=== PATIENT | female | born 1995 | race Two or more races ===

== ENCOUNTER 2017-02-06 21:17 | Emergency (ER) | payer OTHER ==
[2017-02-06 21:24] VITALS: RESP 18; TEMP 97.5
--- NOTE | 2017-02-06 22:19 | EDPHY ---
H & P Stated Complaint: l eye pain drainage from l eye Time Seen by Provider: 02/06/17 21:38 HPI/ROS: Chief complaint: Left eye discomfort History of present illness: 21-year-old female presents to the emergency department for left eye discomfort. Patient reports the onset of symptoms over the last day. She denies precipitating factors. She denies alleviating factors. She does state there has been a fair amount of discharge of pustular material and there is matting of her eyelids. She denies fevers, denies other cold symptoms, denies trauma, her right eye is not affected. She has good vision when she clears the discharge from the eye. She does not wear contacts or glasses. She has never had eye surgery. - Personal History LMP (Females 10-55): 1-7 Days Ago Current Tetanus/Diphtheria Vaccine: Yes Current Tetanus Diphtheria and Acellular Pertussis (TDAP): Yes - Medical/Surgical History Hx Asthma: No Hx Chronic Respiratory Disease: No Hx Diabetes: No Hx Cardiac Disease: No Hx Renal Disease: No Hx Cirrhosis: No Hx Alcoholism: No Hx HIV/AIDS: No Hx Splenectomy or Spleen Trauma: No Other PMH: Cholecystectomy - Social History Smoking Status: Never smoked - Physical Exam Exam: General Appearance: Alert and no distress. Eyes: Periorbital tissue is unremarkable. There is significant pustular discharge from the left eye with matting of the eyelashes. Mild inflammation along the margins of the eyelids. Mild injection of the eye. No subconjunctival hemorrhage. No hyphema. No hypopyon. EOM intact. Pupils equal and round no injection. Red reflex present. Right eye is unremarkable. Respiratory: Chest is nontender, lungs are clear to auscultation. Cardiac: regular rate and rhythm. Musculoskeletal: Neck is supple and nontender. Extremities have full range of motion and are nontender. Skin: Periorbital tissue is unremarkable. Constitutional: Initial Vital Signs Temperature (C) 36.4 C 02/06/17 21:20 Heart Rate 72 02/06/17 21:20 Respiratory Rate 18 02/06/17 21:20 O2 Sat (%) 99 02/06/17 21:20 O2 Delivery Mode Room Air Allergies/Adverse Reactions: No Known Allergies Allergy (Unverified 02/03/12 04:52) Home Medications: Medication Instructions Recorded NK [No Known Home Meds] 02/26/14 Medical Decision Making ED Course/Re-evaluation: Patient is seen under the supervision of my secondary supervising physician Dr. Suhail Guadalupe. Patient presents to the emergency department for left eye discomfort with discharge from the eye. On presentation she is nontoxic. Physical exam is consistent with an eye infection, conjunctivitis or blepharitis. Patient will be started on eye antibiotics. Home care is discussed including warm compresses. She has had previous eye infections in this eye that have responded well to the eye antibiotics. She is asked to follow up with an director of revenue given recurrent eye infections. Referral information is provided. Return precautions are given. Patient voiced understanding and agreement with plan. - Data Points Medications Given: Discontinued Medications Ciprofloxacin (Ciloxan 0.3% Opht Drops Prepack) 1 btl TAKEHOME EDNOW ONE Stop: 02/06/17 22:28 Last Admin: 02/06/17 22:27 Dose: 1 btl Departure - Departure Disposition: Home, Routine, Self-Care Clinical Impression: Conjunctivitis Condition: Good Instructions: Conjunctivitis (ED) Additional Instructions: Follow-up with an eye doctor for recheck Use the eye antibiotic as directed, place 1 drop into the affected eye every 2 hours while awake for the first 2 days and then every 4 hours while awake for the next 5 days Apply warm compresses to the affected region as discussed If symptoms worsen or new symptoms develop return to the emergency room for recheck Referrals: NONE *PRIMARY CARE P,. [Primary Care Provider] - As per Instructions Hilda Barrientos MD [Non Staff Provider ()] - As per Instructions Stand Alone Forms: Work Excuse
[2017-02-06] MEDS ORDERED: CIPROFLOXACIN 0.3% DROPS PREPACK OPHT.BTL TAKEHOME ONE (22:27)
[2017-02-06 22:41] VITALS: BP 144/68; PULSE 71; O2SAT 94
== END 2017-02-06 22:41 | disposition home or self-care (01) ==
DX: H10.9 Unspecified conjunctivitis (principal)

== ENCOUNTER 2017-06-26 11:46 | Emergency (ER) | payer OTHER ==
[2017-06-26 11:51] VITALS: BP 161/98; PULSE 71; RESP 18; TEMP 97.9; O2SAT 99
--- NOTE | 2017-06-26 14:17 | EDPHY ---
H & P Stated Complaint: Dry,nonprod cough x 2 days;also has ear ache Source: Patient Exam Limitations: No limitations - Personal History LMP (Females 10-55): Now Current Tetanus Diphtheria and Acellular Pertussis (TDAP): Yes - Medical/Surgical History Hx Asthma: No Hx Chronic Respiratory Disease: No Hx Diabetes: No Hx Cardiac Disease: No Hx Renal Disease: No Hx Cirrhosis: No Hx Alcoholism: No Hx HIV/AIDS: No Hx Splenectomy or Spleen Trauma: No Other PMH: Cholecystectomy - Social History Smoking Status: Never smoked HPI/ROS: CHIEF COMPLAINT: Multiple complaints HISTORY OF PRESENT ILLNESS: Patient complains of cough, runny nose, sore throat, left ear pain and chest pressure and pain. Everything but the chest pressure pain started 3-4 days ago. Gradual onset. Constant duration. Worse at night when she lays down. Cough is nonproductive. She does have a sore throat that is moderate to severe. Left ear pain is moderate to severe. The chest pressure and pain started last night. It is worse when coughing and when inspiration. It is not worse with exertion. There is no radiating pain. No sweating. No nausea or vomiting. No shortness of breath. No abdominal pain. No recent travel or surgery. No previous incidence of the VTE or risk factors for VTE. She does work at a preschool. Minimal improvement with [id number] Tylenol cough medicines. No other associated complaints or modifying factors. Last LMP: Current REVIEW OF SYSTEMS: Ten systems reviewed and are negative unless otherwise noted in the HPI PAST MEDICAL HISTORY: None PAST SURGICAL HISTORY: None SOCIAL HISTORY: Nonsmoker. Denies alcohol use. Lives in [facility]. Works as a teacher at [employer] FAMILY HISTORY: Noncontributory EXAMINATION General Appearance: Alert, no distress Head: normocephalic, atraumatic Eyes: Pupils equal and round, no conjunctival pallor or injection ENT, Mouth: Mucous membranes moist. Uvula midline mild posterior erythema without edema or exudate. Right ear is clear. Left EAC is clear. Left TM is bulging with serous otitis media. No acute otitis media. No perforation. No peritonsillar or tonsillar abscess Neck: Normal inspection, supple, non-tender. Painless range of motion all planes. No meningismus or rigidity Respiratory: No wheezing or crackles. No diminishment or consolidation. Mild rhonchi. No retractions or distress Cardiovascular: Regular rate and rhythm. No murmur Gastrointestinal: Abdomen is soft and nontender Back: non-tender, no bony abnormalities Neurological: A&O, nonfocal, normal gait Skin: Warm and dry, no rash. No petechiae or purpura Extremities: Nontender, no pedal edema Psychiatric: Mood and affect normal DIFFERENTIAL DIAGNOSES: Including but not limited to bronchitis, pneumonia, influenza, upper respiratory infection, lower respiratory infection, pharyngitis, otitis media, serous otitis media MDM: 2:15 p.m. Cough, runny nose,pharyngitis, left ear pain with serous otitis media without otitis media. Suspect viral etiology, but I have ordered chest x-ray to rule out pneumonia. Vital signs stable. Chest pain is completely reproducible with cough. 3:15 p.m. Chest x-ray does not reveal any evidence of pneumonia. Vital signs stable. Suspect this is viral etiology, pharyngitis, bronchitis and upper respiratory infection. Treat symptomatically with close follow up primary care physician and ED precautions for exertional chest pain, shortness of breath, fever, diaphoresis Patient is comfortable this plan and discharged home stable conditions. (Jurgen Davidson) Constitutional: Initial Vital Signs Temperature (C) 36.6 C 06/26/17 11:48 Heart Rate 71 06/26/17 11:48 Respiratory Rate 18 06/26/17 11:48 Blood Pressure 161/98 H 06/26/17 11:48 O2 Sat (%) 99 06/26/17 11:48 O2 Delivery Mode Room Air Allergies/Adverse Reactions: No Known Allergies Allergy (Verified 06/26/17 11:48) Home Medications: Medication Instructions Recorded Acetaminophen/Codeine 300/30Mg 1 each PO Q6 PRN #15 tab 06/26/17 [Tylenol #3 (*)] Dexamethasone [Decadron 4 MG (*)] 8 mg PO DAILY #2 tab 06/26/17 predniSONE [Deltasone] 60 mg PO DAILY #9 tablet 06/26/17 Medical Decision Making ED Course/Re-evaluation: The patient was evaluated and managed by the physician orthodontist assistant. I have reviewed this chart and I agree with the findings and plan of care as documented , as indicated by my signature. I am the secondary supervising physician. ( Kortney Ureña) Departure - Departure Disposition: Home, Routine, Self-Care Clinical Impression: Acute pharyngitis, Acute bronchitis, Acute serous otitis media Condition: Good Instructions: Pharyngitis (ED), Acute Bronchitis (ED), Serous Otitis Media (ED) Additional Instructions: 1. Symptomatic medications as discussed 2. ED precautions as discussed 3. follow up with primary care physician Referrals: NONE *PRIMARY CARE P,. [Primary Care Provider] - As per Instructions Navarro Mccormack MD [Medical Doctor] - As per Instructions Physician,Emergency DeptMD [Medical Doctor] - As per Instructions Stand Alone Forms: Work Excuse Prescriptions: Acetaminophen/Codeine 300/30Mg [Tylenol #3 (*)] 1 each PO Q6 PRN #15 tab PRN Reason: Pain, Mild Dexamethasone [Decadron 4 MG (*)] 8 mg PO DAILY #2 tab predniSONE [Deltasone] 60 mg PO DAILY #9 tablet
== END 2017-06-26 16:10 | disposition home or self-care (01) ==
DX: J02.9 Acute pharyngitis, unspecified (principal); J20.9 Acute bronchitis, unspecified; H65.02 Acute serous otitis media, left ear

== ENCOUNTER 2018-01-16 12:40 | Emergency (ER) | payer OTHER ==
[2018-01-16] MEDS ORDERED: MAG HYDROX/AL HYDROX/SIMETH 30 ML UDCUP PO ONE (13:07)
[2018-01-16] MEDS ORDERED: HYOSCYAMINE SULFATE 0.125 MG TAB PO ONE (13:07)
[2018-01-16] MEDS ORDERED: HYDROmorphONE/DILAUDID 2 MG/ML INJ IVP ONE (13:07)
[2018-01-16] MEDS ORDERED: NS 1,000 ML IV ONE (13:07)
[2018-01-16] MEDS ORDERED: LIDOCAINE 2% VISCOUS 15 ML UDCUP PO ONE (13:07)
--- NOTE | 2018-01-16 13:10 | EDPHY ---
H & P Stated Complaint: abd pain and nausea Time Seen by Provider: 01/16/18 13:01 HPI/ROS: CHIEF COMPLAINT: Epigastric pain HISTORY OF PRESENT ILLNESS: The patient is a obese 22-year-old female with a history of cholecystectomy 2 years ago who comes to the emergency department complaining of epigastric pain each evening for the last 5 days. She states that last night it hurt all night. She tried taking Tylenol and Pepto-Bismol without relief. She describes it as a heaviness feeling. She denies any history of cardiac disease. No chest pain or shortness of breath. No lower abdominal pain. No vaginal bleeding or discharge. No urinary symptoms. No vomiting or diarrhea but does have slight nausea. REVIEW OF SYSTEMS: Constitutional: denies: chills, fever, recent illness, recent injury EENTM: denies: blurred vision, double vision, nose congestion Respiratory: denies: cough, shortness of breath Cardiac: denies: chest pain, irregular heart rate, lightheadedness, palpitations Gastrointestinal/Abdominal: See HPI Genitourinary: denies: dysuria, frequency, hematuria, pain Musculoskeletal: denies: joint pain, muscle pain Skin: denies: lesions, rash, jaundice, bruising Neurological: denies: headache, numbness, paresthesia, tingling, dizziness, weakness Hematologic/Lymphatic: denies: blood clots, easy bleeding, easy bruising Immunologic/allergic: denies: HIV/AIDS, transplant EXAM: GENERAL: Well-appearing, obese and in no acute distress. HEAD: Atraumatic, normocephalic. EYES: Pupils equal round and reactive to light, extraocular movements intact, sclera anicteric, conjunctiva are normal. ENT: TMs normal, nares patent, oropharynx clear without exudates. Moist mucous membranes. NECK: Normal range of motion, supple without lymphadenopathy or JVD. LUNGS: Breath sounds clear to auscultation bilaterally and equal. No wheezes rales or rhonchi. HEART: Regular rate and rhythm without murmurs, rubs or gallops. ABDOMEN: Obese, mild epigastric tenderness, negative Matos's BACK: No CVA tenderness, no spinal tenderness, step-offs or deformities EXTREMITIES: Normal range of motion, no pitting or edema. No clubbing or cyanosis. NEUROLOGICAL: Cranial nerves II through XII grossly intact. Normal speech, normal gait. 5/5 strength, normal movement in all extremities, normal sensation PSYCH: Normal mood, normal affect. SKIN: Warm, dry, normal turgor, no visible rashes or lesions. Source: Patient Exam Limitations: No limitations - Personal History LMP (Females 10-55): 8-14 Days Ago Current Tetanus/Diphtheria Vaccine: Yes Current Tetanus Diphtheria and Acellular Pertussis (TDAP): Yes - Medical/Surgical History Hx Asthma: No Hx Chronic Respiratory Disease: No Hx Diabetes: No Hx Cardiac Disease: No Hx Renal Disease: No Hx Cirrhosis: No Hx Alcoholism: No Hx HIV/AIDS: No Hx Splenectomy or Spleen Trauma: No Other PMH: Cholecystectomy - Social History Smoking Status: Never smoked Constitutional: Initial Vital Signs Temperature (C) 36.4 C 01/16/18 12:49 Heart Rate 88 01/16/18 12:49 Respiratory Rate 16 01/16/18 12:49 Blood Pressure 105/75 01/16/18 12:49 O2 Sat (%) 96 01/16/18 12:49 O2 Delivery Mode Room Air Allergies/Adverse Reactions: No Known Allergies Allergy (Verified 06/26/17 11:48) Home Medications: Medication Instructions Recorded Famotidine [Pepcid] 40 mg PO HS #30 tablet 01/16/18 Promethazine HCl [Phenergan 25mg 25 mg PO Q6-8PRN PRN #10 tab 01/16/18 (RX)] Medical Decision Making - Diagnostics EKG Interpretation: An EKG obtained and was read and documented in trace view. Please see trace view for full reading and report. Sinus rhythm, no acute ischemic changes Imaging Results: Imaging Impressions Abdomen CT 01/16/18 13:07 Impression: 1. Trace nonspecific free fluid in the cul-de-sac may be due to ruptured ovarian cyst or follicle. 2. Minimal dilatation of the common bile duct may be patient's postcholecystectomy state. No evidence of choledocholithiasis or acute pancreatitis. 3. No pneumoperitoneum or evidence of perforated gastric ulcer. 4. Normal appendix. Findings discussed with Emergency Department physician, Mariusz Nash on 2017, 15:00. Imaging: Discussed imaging studies w/ bullet slugs inspector Radiologist ED Course/Re-evaluation: 3:15 p.m. the patient's abdominal exam is nontender. She states that she was feeling better after the medication but that she vomited. It is greenish in color. No blood. I will treat her with Phenergan. Discussed her lab and CT results which are overall reassuring. At this point I will treat her symptomatically. 5:30 p.m. the patient is tolerating P.O.. Abdominal exam is benign. She is eager to go home. I will prescribe her Phenergan. She is happy with this plan. We discussed indications for returning. I recommended she get a repeat exam in 24 hr. Differential Diagnosis: Partial list of the Differential diagnosis considered include but were not limited to; pancreatitis, biliary disease, retained stone, peptic ulcer disease and although unlikely based on the history and physical exam, I also considered obstruction, ischemia, appendicitis, volvulus, acute coronary disease. I discussed these differential diagnoses and the plan with the patient as well as the usual and expected course. The patient understands that the diagnosis is provisional and that in medicine we are not always correct and that further workup is often warranted. Usual and customary warnings were given. All of the patient's questions were answered. The patient was instructed to return to the emergency department should the symptoms at all worsen or return, otherwise to followup with the physician as we discussed. - Data Points Laboratory Results: Laboratory Results 01/16/18 13:24 01/16/18 13:24 01/16/18 01/16/18 01/16/18 13:24 13:24 13:24 WBC 11.42 10^3/uL H 10^3/uL (3.80-9.50) RBC 5.31 10^6/uL 10^6/uL (4.18-5.33) Hgb 15.3 g/dL g/dL (12.6-16.3) Hct 45.4 % % (38.0-47.0) MCV 85.5 fL fL (81.5-99.8) MCH 28.8 pg pg (27.9-34.1) MCHC 33.7 g/dL g/dL (32.4-36.7) RDW 12.9 % % (11.5-15.2) Plt Count 267 10^3/uL 10^3/uL (150-400) MPV 9.6 fL fL (8.7-11.7) Neut % (Auto) 79.0 % H % (39.3-74.2) Lymph % (Auto) 14.3 % L % (15.0-45.0) Kinney % (Auto) 5.7 % % (4.5-13.0) Eos % (Auto) 0.4 % L % (0.6-7.6) Baso % (Auto) 0.2 % L % (0.3-1.7) Nucleat RBC Rel Count 0.0 % % (0.0-0.2) Absolute Neuts (auto) 9.03 10^3/uL H 10^3/uL (1.70-6.50) Absolute Lymphs (auto) 1.63 10^3/uL 10^3/uL (1.00-3.00) Absolute Monos (auto) 0.65 10^3/uL 10^3/uL (0.30-0.80) Absolute Eos (auto) 0.04 10^3/uL 10^3/uL (0.03-0.40) Absolute Basos (auto) 0.02 10^3/uL 10^3/uL (0.02-0.10) Absolute Nucleated RBC 0.00 10^3/uL 10^3/uL (0-0.01) Immature Gran % 0.4 % % (0.0-1.1) Immature Gran # 0.05 10^3/uL 10^3/uL (0.00-0.10) Sodium 140 mEq/L mEq/L (135-145) Potassium 3.9 mEq/L mEq/L (3.5-5.2) Chloride 105 mEq/L mEq/L (97-110) Carbon Dioxide 21 mEq/l L mEq/l (22-31) Anion Gap 14 mEq/L mEq/L (8-16) BUN 9 mg/dL mg/dL (7-23) Creatinine 0.6 mg/dL mg/dL (0.6-1.0) Estimated GFR > 60 Glucose 78 mg/dL mg/dL (70-100) Calcium 8.8 mg/dL mg/dL (8.5-10.4) Total Bilirubin 1.2 mg/dL mg/dL (0.1-1.4) Conjugated Bilirubin 0.5 mg/dL mg/dL (0.0-0.5) Unconjugated Bilirubin 0.7 mg/dL mg/dL (0.0-1.1) AST 22 IU/L IU/L (14-46) ALT 38 IU/L IU/L (9-52) Alkaline Phosphatase 133 IU/L H IU/L (38-126) Total Protein 7.7 g/dL g/dL (6.3-8.2) Albumin 4.1 g/dL g/dL (3.5-5.0) Lipase 63 IU/L IU/L (23-300) Beta HCG, Qual NEGATIVE Medications Given: Discontinued Medications Al Hydroxide/Mg Hydroxide (Maalox Susp) 30 ml PO ONCE ONE Stop: 01/16/18 13:08 Last Admin: 01/16/18 13:18 Dose: 30 ml Hydromorphone HCl (Dilaudid) 1 mg IVP EDNOW ONE Stop: 01/16/18 13:08 Last Admin: 01/16/18 13:18 Dose: 1 mg Hyoscyamine Sulfate (Levsin, Hyomax-Sl) 0.25 mg PO ONCE ONE Stop: 01/16/18 13:08 Last Admin: 01/16/18 13:18 Dose: 0.25 mg Sodium Chloride (Ns) 1,000 mls @ 0 mls/hr IV EDNOW ONE; Wide Open PRN Reason: Protocol Stop: 01/16/18 13:08 Last Admin: 01/16/18 13:18 Dose: 1,000 mls Lidocaine (Lidocaine 2% Viscous) 15 ml PO ONCE ONE Stop: 01/16/18 13:08 Last Admin: 01/16/18 13:18 Dose: 15 ml Promethazine HCl (Phenergan) 12.5 mg IVP EDNOW ONE Stop: 01/16/18 15:16 Last Admin: 01/16/18 15:31 Dose: 12.5 mg Departure - Departure Disposition: Home, Routine, Self-Care Clinical Impression: Abdominal pain Qualifiers: Abdominal location: epigastric Qualified Code(s): R10.13 - Epigastric pain Condition: Fair Instructions: Famotidine (By mouth), Promethazine (By mouth), Acute Abdominal Pain (ED) Referrals: NONE *PRIMARY CARE P,. [Primary Care Provider] - As per Instructions [facility],. [Clinic] - As per Instructions Faith Antunez MD [Medical Doctor] - As per Instructions Prescriptions: Famotidine [Pepcid] 40 mg PO HS #30 tablet Promethazine HCl [Phenergan 25mg (RX)] 25 mg PO Q6-8PRN PRN #10 tab PRN Reason: Nausea/Vomiting, Use 2nd
--- NOTE | 2018-01-16 13:31 | CPEKG ---
Heart Rate: 69 RR Interval: 870 P-R Interval: 160 QRSD Interval: 98 QT Interval: 392 QTC Interval: 420 P Dilley: 25 QRS Dilley: -9 T Wave Dilley: 21 EKG Severity - NORMAL ECG - EKG Impression: SINUS RHYTHM Electronically Signed By: Mariusz Nash 16-Jan-2018 13:33:11
[2018-01-16 13:34] LABS: PLATELET COUNT 267 10^3/uL (150-400)
[2018-01-16] MEDS ORDERED: IOPAMIDOL (ISOVUE-300) 100 ML BTL ONE (14:31)
[2018-01-16] MEDS ORDERED: PROMETHAZINE HCL 25 MG/ML INJ IVP ONE (15:15)
[2018-01-16 17:07] VITALS: BP 124/67
== END 2018-01-16 17:54 | disposition home or self-care (01) ==
DX: R10.13 Epigastric pain (principal); E86.9 Volume depletion, unspecified; Z90.49 Acquired absence of other specified parts of digestive tract
CPT/HCPCS: 96374; J1170; J2550; Q9967

== ENCOUNTER 2018-06-19 15:51 | Emergency (ER) | payer OTHER ==
[2018-06-19 16:03] VITALS: BP 140/96
--- NOTE | 2018-06-19 16:07 | EDPHY ---
H & P Time Seen by Provider: 06/19/18 16:05 HPI/ROS: CHIEF COMPLAINT: Sore throat otalgia x2 days HISTORY OF PRESENT ILLNESS: 22-year-old immunocompetent female complaining of 2 days of sore throat, otalgia. No change in voice. No fever or chills. No nuchal rigidity. No adenopathy. No abdominal pain. No rash. No cough. No other URI symptoms. REVIEW OF SYSTEMS: 10 systems reviewed and negative with the exception of the elements mentioned in the history of present illness PAST MEDICAL & SURGICAL HISTORY: No pertinent medical or surgical history SOCIAL HISTORY: Nonsmoker PHYSICAL EXAM (Prior to examination, patient consented to physical exam, hands were washed and my usual and customary physical exam procedures followed) 1) GENERAL: Well-developed, well-nourished, alert and oriented. Appears to be in no acute distress. 2) HEAD: Normocephalic, atraumatic 3) HEENT: Pupils equal, round, reactive to light bilaterally. Sclera anicteric. Oropharynx: Bilaterally enlarged, symmetrical , exudative tonsils. No trismus no drooling no hot potato voice. Ears bilaterally with normal tympanic membranes. No signs of otitis media otitis externa 4) NECK: Full range of motion, no meningeal signs. Full pain-free range of motion 5) LUNGS: Clear auscultation bilaterally, no wheezes, no rhonchi, no retractions. 6) HEART: Regular rate and rhythm, no murmur, no heave, no gallop. 7) ABDOMEN: No guarding, no rebound, no focal tenderness, negative McBurney's, negative Matos's, negative Rovsing's, negative peritoneal sign, 8) MUSCULOSKELETAL: Moving all extremities, no focal areas of tenderness, no obvious trauma. No peripheral edema or discoloration. 9) BACK: No CVA tenderness, no midline vertebral tenderness, no fluctuance, no step-off, no obvious trauma, no visual or palpable abnormality. 10) SKIN: No rash, no petechiae. 11) Psychiatric: Patient is oriented X 3, there is no agitation. DIFFERENTIAL DIAGNOSIS: In no particular order, my differential diagnosis includes, but is not limited to, strep pharyngitis, viral pharyngitis, peritonsillar abscess, retropharyngeal abscess or plegmon, mononucleosis, meningitis, Lemierre syndrome. Smoking Status: Never smoked Constitutional: Initial Vital Signs Temperature (C) 36.8 C 06/19/18 16:01 Heart Rate 79 06/19/18 16:01 Respiratory Rate 16 06/19/18 16:01 Blood Pressure 140/96 H 06/19/18 16:01 O2 Sat (%) 99 06/19/18 16:01 O2 Delivery Mode Room Air Allergies/Adverse Reactions: No Known Allergies Allergy (Verified 06/19/18 16:01) Home Medications: Medication Instructions Recorded Penicillin V Potassium [Pen Vk] 500 mg PO Q6 10 Days tab 06/19/18 methylPREDNISolone [Medrol Dose 4 mg PO DAILY #1 ea 06/19/18 Gil] MDM/Departure - MDM ED Course/Re-evaluation: High clinical suspicion for strep pharyngitis. Recommend empiric treatment. Doubt peritonsillar abscess, doubt Lemierre syndrome. My usual and customary pharyngitis precautions instructions provided. I saw this patient independently based on established practice protocols. Care of patient under supervision of secondary supervising physician Dr Yang . - Depart Disposition: Home, Routine, Self-Care Clinical Impression: Acute streptococcal pharyngitis Condition: Good Instructions: Strep Throat (ED) Additional Instructions: Return to the ER immediately if you cannot swallow, have drooling, fevers, neck stiffness, cannot open your jaw, or any other symptoms that concern you. Prescriptions: methylPREDNISolone [Medrol Dose Gil] 4 mg PO DAILY #1 ea Penicillin V Potassium [Pen Vk] 500 mg PO Q6 10 Days tab Referrals: MARK BERRY [Primary Care Provider] - 2-3 days, call for appt.
== END 2018-06-19 16:28 | disposition home or self-care (01) ==
DX: J02.0 Streptococcal pharyngitis (principal); H92.09 Otalgia, unspecified ear

== ENCOUNTER 2018-06-19 19:58 | Emergency (ER) | payer OTHER ==
[2018-06-19 20:04] VITALS: BP 155/96
[2018-06-19] MEDS ORDERED: IBUPROFEN 600 MG TAB PO ONE (20:47)
[2018-06-19] MEDS ORDERED: IBUPROFEN SUSP 100 MG/5 ML UDCUP PO ONE (20:52)
--- NOTE | 2018-06-19 20:59 | EDPHY ---
H & P Stated Complaint: right ear pain and sore throat Time Seen by Provider: 06/19/18 20:12 HPI/ROS: CHIEF COMPLAINT: Right otalgia HISTORY OF PRESENT ILLNESS: 22-year-old female seen the ER earlier today for complaints of sore throat returns to the ER complaining of new right otalgia. No otorrhea. No hearing loss. No tinnitus. No foreign body insertion. No dizziness. Continued complaints of sore throat. She has previously seen by myself in diagnosed with more than likely strep pharyngitis based on clinical exam findings and started on empiric therapy of Pen-VK which he has taken. REVIEW OF SYSTEMS: 10 systems reviewed and negative with the exception of the elements mentioned in the history of present illness PAST MEDICAL & SURGICAL HISTORY: No pertinent medical or surgical history SOCIAL HISTORY: Nonsmoker PHYSICAL EXAM (Prior to examination, patient consented to physical exam, hands were washed and my usual and customary physical exam procedures followed) 1) GENERAL: Well-developed, well-nourished, alert and oriented. Appears uncomfortable. 2) HEAD: Normocephalic, atraumatic 3) HEENT: Pupils equal, round, reactive to light bilaterally. Sclera anicteric. Nasopharynx, oropharynx, clear, no lesions. Moist mucous membranes. Bilateral tonsils are symmetrically enlarged with white exudate. Left ear: Clear EAC, nonbulging non erythematous tympanic membrane. Right ear : Tender to palpation with movement of the tragus, erythematous external auditory canal, nonbulging non erythematous tympanic membrane. No otorrhea. Bilateral mastoid nontender non boggy 4) NECK: Full range of motion, no meningeal signs. 5) LUNGS: Clear auscultation bilaterally, no wheezes, no rhonchi, no retractions. 6) HEART: Regular rate and rhythm, no murmur, no heave, no gallop. 7) ABDOMEN: No guarding, no rebound, no focal tenderness, negative McBurney's, negative Matos's, negative Rovsing's, negative peritoneal sign, 8) MUSCULOSKELETAL: Moving all extremities, no focal areas of tenderness, no obvious trauma. No peripheral edema or discoloration. 9) BACK: No CVA tenderness, no midline vertebral tenderness, no fluctuance, no step-off, no obvious trauma, no visual or palpable abnormality. 10) SKIN: No rash, no petechiae. 11) Psychiatric: Patient is oriented X 3, there is no agitation. DIFFERENTIAL DIAGNOSIS: In no particular order including but not limited to otitis media, otitis externa, malignant otitis externa, mastoiditis - Personal History LMP (Females 10-55): 22-28 Days Ago Current Tetanus/Diphtheria Vaccine: Yes Current Tetanus Diphtheria and Acellular Pertussis (TDAP): Yes - Medical/Surgical History Hx Asthma: No Hx Chronic Respiratory Disease: No Hx Diabetes: No Hx Cardiac Disease: No Hx Renal Disease: No Hx Cirrhosis: No Hx Alcoholism: No Hx HIV/AIDS: No Hx Splenectomy or Spleen Trauma: No Other PMH: Cholecystectomy, - Social History Smoking Status: Never smoked Constitutional: Initial Vital Signs Temperature (C) 36.7 C 06/19/18 20:02 Heart Rate 71 06/19/18 20:02 Respiratory Rate 16 06/19/18 20:02 Blood Pressure 155/96 H 06/19/18 20:02 O2 Sat (%) 97 06/19/18 20:02 O2 Delivery Mode Room Air Allergies/Adverse Reactions: No Known Allergies Allergy (Verified 06/19/18 20:04) Home Medications: Medication Instructions Recorded Ciprofloxacin HCl/Dexameth 4 drop OT BID #1 drops.susp 06/19/18 [Ciprodex Otic Suspension] Penicillin V Potassium [Pen Vk] 500 mg PO Q6 10 Days tab 06/19/18 methylPREDNISolone [Medrol Dose 4 mg PO DAILY #1 ea 06/19/18 Gil] Medical Decision Making ED Course/Re-evaluation: New physical exam findings consistent with acute otitis externa on the right ear without signs of malignant otitis externa. Recommend continued treatment for strep pharyngitis which she still has clinical signs of but will also prescribe Ciprodex as well as analgesia for take-home. - Data Points Medications Given: Discontinued Medications Ibuprofen (Motrin) 600 mg PO EDNOW ONE Stop: 06/19/18 20:48 Last Admin: 06/19/18 20:50 Dose: Not Given Ibuprofen (Motrin Oral Solution) 600 mg PO EDNOW ONE Stop: 06/19/18 20:53 Last Admin: 06/19/18 20:57 Dose: 600 mg Departure - Departure Disposition: Home, Routine, Self-Care Clinical Impression: Acute streptococcal pharyngitis Right otitis externa Qualifiers: Otitis externa type: other infective Chronicity: acute Qualified Code(s): H60.391 - Other infective otitis externa, right ear Condition: Good Instructions: Hydrocodone/Acetaminophen (By mouth), Ciprofloxacin/ Dexamethasone (Into the ear), Otitis Externa (ED) Additional Instructions: Return to the ER immediately if you cannot swallow, have drooling, fevers, neck stiffness, cannot open your jaw, or any other symptoms that concern you. Referrals: MARK BERRY [Primary Care Provider] - 2-3 days, call for appt. Prescriptions: Ciprofloxacin HCl/Dexameth [Ciprodex Otic Suspension] 4 drop OT BID #1 drops.susp
[2018-06-19] MEDS ORDERED: HYDROCOD/APAP 5/325 PREPACK#6 BTL TAKEHOME ONE (21:01)
== END 2018-06-19 21:05 | disposition home or self-care (01) ==
DX: J02.0 Streptococcal pharyngitis (principal)